=== PATIENT | female | born 1995 | race American Indian/Alaskan Native ===

== ENCOUNTER 2018-03-06 03:54 | Emergency (ER) | payer OTHER ==
[2018-03-06 04:19] VITALS: BP 129/69
[2018-03-06] MEDS ORDERED: TYLENOL ONE (04:38)
[2018-03-06] MEDS ORDERED: TYLENOL PO ONE (04:47)
[2018-03-06 06:00] LABS: HCG Qualitative,Urine Negative (Negative)
[2018-03-06] MEDS ORDERED: ROXICODONE PO ONE (06:07)
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
--- NOTE | 2018-03-06 06:35 | XRay Report ---
FINAL REPORT EXAM: XR SHOULDER 2+V LT HISTORY: Left shoulder pain TECHNIQUE: Three views of the left shoulder were submitted. FINDINGS: There is no evidence of fracture or soft tissue injury. The AC joint and glenohumeral joint appear intact. IMPRESSION: Within normal limits.
[2018-03-06 07:31] LABS: Basophils # (Auto) 0.1 K/mm3 (0.0-0.1); Basophils % (Auto) 0.7 % (0.0-1.8); Eosinophils % (Auto) 0.1 % (0.0-4.3); Hematocrit 40.3 % (30.3-42.9); Hemoglobin 12.6 gm/dl (10.1-14.3); Lymphocytes # (Auto) 3.5 K/mm3 (1.2-5.4); Lymphocytes % (Auto) 21.2 % (13.4-35.0); Mean Corpuscular HGB Conc 31 % (30-34); Mean Corpuscular Volume 79 fl (79-97); Monocytes # (Auto) 0.7 K/mm3 (0.0-0.8); Monocytes % (Auto) 4.2 % (0.0-7.3); Platelet Count 399 K/mm3 (140-440); Red Cell Distribution Width 15.1 % (13.2-15.2)
[2018-03-06 07:32] LABS: Mean Corpuscular Hemoglobin 25 pg (28-32)
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
== END 2018-03-06 09:19 | disposition home or self-care (01) ==
LOC: ED 03:54
DX: S20.212A Contusion of left front wall of thorax, initial encounter (principal); S46.912A Strain of unspecified muscle, fascia and tendon at shoulder and upper arm level, left arm, initial encounter; V49.49XA Driver injured in collision with other motor vehicles in traffic accident, initial encounter; X58.XXXA Exposure to other specified factors, initial encounter; Y93.89 Activity, other specified; Y92.89 Other specified places as the place of occurrence of the external cause; Y99.8 Other external cause status
CPT/HCPCS: 36415; 71275; 73030; 74174; 81025; 82565; 85025; 93005; 93010; 99285; Q9967